=== PATIENT | female | born 1990 ===

== ENCOUNTER 2025-07-05 12:26 | Emergency (ER) | payer OTHER, SELFPAY ==
--- NOTE | ~2025-07-05 | XR_ITS ---
EXAMINATION: XR HIP, LEFT CLINICAL INFORMATION: pain, injury COMPARISON: None available. TECHNIQUE: AP and oblique views of the left hip. AP view pelvis. FINDINGS: No acute cortical disruption or malalignment. Generative changes in the symphysis pubis. 0.8 pelvis is intact. No lytic or blastic lesions. The left hand overlaps the left iliac bone on the AP projection of the pelvis. XR/XR shoulder LT min 2V IMPRESSION: No acute fracture or dislocation or gross degenerative changes, left hip. EXAMINATION: XR SHOULDER, LEFT CLINICAL INFORMATION: pain, injury COMPARISON: None available. TECHNIQUE: AP external rotation, Grashey, scapular Y, and axillary views of the left shoulder. FINDINGS: No acute cortical disruption or malalignment. No lytic or blastic lesions. Metallic hardware in the thoracic spine no fully included in the [id number]. IMPRESSION: No acute fracture or dislocation, left shoulder.. Electronically signed by: Clifford Sanchez MD 07/05/2025 01:29 PM EDT
--- NOTE | ~2025-07-05 | XR_ITS ---
EXAMINATION: XR HIP, LEFT CLINICAL INFORMATION: pain, injury COMPARISON: None available. TECHNIQUE: AP and oblique views of the left hip. AP view pelvis. FINDINGS: No acute cortical disruption or malalignment. Generative changes in the symphysis pubis. 0.8 pelvis is intact. No lytic or blastic lesions. The left hand overlaps the left iliac bone on the AP projection of the pelvis. XR/XR hip LT w [id number] IMPRESSION: No acute fracture or dislocation or gross degenerative changes, left hip. EXAMINATION: XR SHOULDER, LEFT CLINICAL INFORMATION: pain, injury COMPARISON: None available. TECHNIQUE: AP external rotation, Grashey, scapular Y, and axillary views of the left shoulder. FINDINGS: No acute cortical disruption or malalignment. No lytic or blastic lesions. Metallic hardware in the thoracic spine no fully included in the [id number]. IMPRESSION: No acute fracture or dislocation, left shoulder.. Electronically signed by: Clifford Sanchez MD 07/05/2025 01:29 PM EDT
[2025-07-05 12:44] VITALS: BP 134/93; PULSE 74; RESP 16; TEMP 36.3; O2SAT 98; BMI 29.8
--- NOTE | 2025-07-05 12:45 | ED.GENADULT ---
HPI - General Adult General Chief complaint: Neck Pain/Injury Stated complaint: back pain Time Seen by Provider: 07/05/25 15:45 Source: patient and release specialist Mode of arrival: ambulatory Limitations: no limitations History of Present Illness ED Provider: HPI narrative: 35-year-old female, with a history of chronic pain, takes tramadol, uses ibuprofen and Tylenol, states fell into the bathtub about a week ago and she was already having pain and medications she takes are not helping her she wanted something stronger I she takes something before bedtime I by mid day she is already on pain. She is about to start physical therapy. Pain is over her back neck and her left side Related Data Allergies Allergy/AdvReac Type Severity Reaction Status Date / Time No Known Allergies Allergy Verified 07/05/25 12:47 Review of Systems Constitutional: Constitutional: Reports as per [facility] Social History Social History Advance Directives: No Advance Directives Information Provided: No Physical Exam ED Exam Exam: Alert and oriented x4 moving upper and lower extremities symmetrically No facial trauma, no head trauma No tenderness along the midline over the back, paraspinal tenderness and tenderness along the medial border of left scapula, no deformities radial ulnar pulses +2 bilateral upper extremities Some tenderness along the left chest wall Vital Signs: Vital Signs - 24 hr 07/05/25 12:44 Temperature 97.4 F Pulse Rate 74 Respiratory Rate 16 Blood Pressure 134/93 H Pulse Oximetry 98 Oxygen Delivery Method Room Air BMI result Body Mass Index 29.8 Course Course Course Narrative: Rapid medical examination performed in triage by Shandra Almanzar PA-C. Patient is a 35 year old assigned female at presenting to the emergency department with worsening left neck and shoulder pain after a fall 1 week ago. Detailed physical exam and review of systems are deferred to the freight brakeman. Imaging ordered. Patient placed back in the waiting room pending room availability and results. Medical Decision Making Medical Decision Making [facility] Narrative: 4:17 PM 07/05/2025 (Dr. Cosmo Gonzalez): Patient had x-rays negative for fractures or dislocations, I spoke to her that outside of pain medications she is already receiving on outpatient basis I am really not going to recommend anything different accept for acetaminophen, ibuprofen, I can recommend steroids she is about to start physical therapy that will help her, this was done with the help of the medical librarian, there was no polytrauma noted. She has chronic pain, possibly fibromyalgia, no head injury, no neck injury, no injury to the back, no decreased range of motion of the shoulder she is able to lifted up though with pain Differential Diagnosis Differential Diagnoses: The differential diagnosis associated with the presentation includes (See above) Radiology Impression Discussion of test interpretation with radiology: I have reviewed the radiologist's reading. Discharge Plan Discharge Clinical Impression: Contusion of left shoulder, Contusion of hip, left Patient Disposition: Home, Self-Care Additional Instructions: Ibuprofen 400 mg every 6 hours, Tylenol 975 mg every 6 hours needed, continue using tramadol that you have at home, he will start physical therapy, as discussed your x-rays of the hip and shoulders unremarkable I will defer pain management to your outpatient providers IbuProfen 400 mg cada 6 horas, Tylenol 975 mg cada 6 horas si es necesario. Contin?e con el tramadol que tiene en casa. Comenzar? la fisioterapia. Kedar se mencion?, jackeline radiograf?as de cadera y hombros no presentan alteraciones. Delegar? el manejo del dolor a jackeline m?dicos ambulatorios. Print Language: Citizen Of [place]
[2025-07-05 16:26] VITALS: BP 134/93; PULSE 74; RESP 16; TEMP 36.3; O2SAT 98
== END 2025-07-05 16:27 | disposition home or self-care (01) ==
PROVIDERS: Emergency Provider Emergency Medicine; PCP Internal Medicine
DX: S40.012A Contusion of left shoulder, initial encounter (principal); S70.02XA Contusion of left hip, initial encounter; M54.50 Low back pain, unspecified; M25.552 Pain in left hip; G89.29 Other chronic pain; M54.2 Cervicalgia; M25.512 Pain in left shoulder; X58.XXXA Exposure to other specified factors, initial encounter; Y93.9 Activity, unspecified; Y92.9 Unspecified place or not applicable; Y99.8 Other external cause status; Z79.899 Other long term (current) drug therapy
CPT/HCPCS: 73030; 73502; 99282; 99283

== ENCOUNTER → 2025-07-05 12:46 | Outpatient (BNV) | payer OTHER, SELFPAY | PROVIDERS: PCP Internal Medicine; Visit Provider Radiology Diagnostic Radiology | DX: M25.552 Pain in left hip (principal); M25.512 Pain in left shoulder | CPT/HCPCS: 73030; 73502 ==